=== PATIENT | male | born 1945 | race Caucasian/White ===

== ENCOUNTER 2017-08-02 06:47 | Inpatient (IN) | payer MEDICARE, BC ==
[~2017-08-02] VITALS: Ht 175.3 cm; Wt 136.4 kg
[2017-08-02 08:09] LABS: ALANINE AMINOTRANSFERASE 24 U/L (12-78); ALBUMIN 2.6 g/dL (3.4-5.0); ANION GAP 10 mmol/L (5-15); CHLORIDE 113 mmol/L (98-107); CREATININE 1.01 mg/dL (0.7-1.3)
[2017-08-02 08:11] LABS: ALKALINE PHOSPHATASE 114 U/L (45-117); BILIRUBIN,TOTAL 0.6 mg/dL (0.2-1.0); TOTAL PROTEIN 6.3 g/dL (6.4-8.2)
[2017-08-02 08:37] VITALS: BP 126/70
[2017-08-02] MEDS ORDERED: EPINEPHRINE 1 MG/ML, 1ML ONE (08:48)
[2017-08-02] MEDS ORDERED: BUPIVACAINE/PF 0.5% ONE (08:48)
[2017-08-02] MEDS ORDERED: MIDAZOLAM 1 MG/ML, 2ML ONE (09:05)
[2017-08-02] MEDS ORDERED: SUFentanil 50 MCG/ML, 1ML ONE (09:05)
[2017-08-02] MEDS ORDERED: PROPOFOL 10 MG/ML, 20ML ONE ×2 (09:06→09:11)
[2017-08-02] MEDS ORDERED: LIDOCAINE-MPF 2% ,5ML ONE ×2 (09:07→09:12)
[2017-08-02] MEDS ORDERED: CEFAZOLIN 1,000 MG ONE ×2 (09:07)
[2017-08-02] MEDS ORDERED: NEOSTIGMINE 1 MG/ML, 10ML ONE (09:18)
[2017-08-02] MEDS ORDERED: ROCURONIUM 10 MG/ML,10ML ONE (09:22)
[2017-08-02] MEDS ORDERED: CLINDAMYCIN 150 MG/ML, 6ML ONE (09:43)
[2017-08-02] MEDS ORDERED: DEXAMETHASONE 4 MG/ML, 1ML ONE ×2 (09:49)
[2017-08-02] MEDS ORDERED: hydrALAzine 20 MG/ML, 1ML IV PRN (10:00)
[2017-08-02] MEDS ORDERED: ACETAMINOPHEN 325 MG TABLET PO PRN (10:00)
[2017-08-02] MEDS ORDERED: ONDANSETRON 2MG/ML, 2ML IVPush PRN (10:00)
[2017-08-02] MEDS ORDERED: MEPERIDINE/PF 25MG/0.5ML IVPush PRN (10:00)
[2017-08-02] MEDS ORDERED: HYDROmorphone 1 MG/ML, 1ML IV PRN (10:00)
[2017-08-02] MEDS ORDERED: LORazepam 2 MG/ML, 1ML IVPush PRN (10:00)
[2017-08-02] MEDS ORDERED: OXYcodone 5 MG/5 ML ORAL.SOL UDC PO PRN (10:00)
[2017-08-02] MEDS ORDERED: LABETALOL 5MG/ML, 20ML IV PRN (10:00)
[2017-08-02] MEDS ORDERED: PROMETHAZINE 25 MG/ML, 1ML IV PRN (10:00)
[2017-08-02] MEDS ORDERED: KETAMINE 10 MG/ML, 20ML ONE (10:04)
[2017-08-02] MEDS ORDERED: KETOROLAC 30 MG/1 ML ONE (10:09)
[2017-08-02] MEDS ORDERED: ONDANSETRON 2MG/ML, 2ML ONE ×2 (10:09)
[2017-08-02] MEDS ORDERED: PLEASE ENTER ALLERGIES MC SCH ×3 (10:30→16:00)
[2017-08-02] MEDS ORDERED: cloniDINE/PF 100 MCG/ML, 10 ML ONE (10:48)
[2017-08-02] MEDS ORDERED: ROPIvacaine/PF 0.5%, 30 ML ONE (10:48)
[2017-08-02] MEDS: FENTANYL PF 100 MCG/2ML IV PRN ×2 (10:50→11:30)
[2017-08-02] MEDS ORDERED: FENTANYL PF 100 MCG/2ML ONE (11:00)
[2017-08-02] MEDS ORDERED: OXYcodone 5 MG/5 ML ORAL.SOL UDC ONE (11:01)
[2017-08-02] MEDS ORDERED: CEPH-368 PO (14:03)
[2017-08-02] MEDS ORDERED: OXYC5TAB3 PO (14:06)
[2017-08-02 14:17] VITALS: BP 122/60
== END 2017-08-02 14:30 | disposition home or self-care (01) | DRG 515 ==
LOC: OR 06:47 → UNDOADMIN 06:47 → 4NOR 06:47 → 3NE 06:48 → EDSTATUS 09:00 → OR 14:30 → UNDODISIN 14:30
PROVIDERS: ADMIT Orthopaedic Surgery; ATTEND Orthopaedic Surgery
PROC: 0RWJ0JZ Revision of Synthetic Substitute in Right Shoulder Joint, Open Approach (ICD-10-PCS; principal; 2017-08-02 09:00)
DX: T84.028A Dislocation of other internal joint prosthesis, initial encounter (principal); E43 Unspecified severe protein-calorie malnutrition; E66.01 Morbid (severe) obesity due to excess calories; Z68.41 Body mass index [BMI] 40.0-44.9, adult; T84.83XA Hemorrhage due to internal orthopedic prosthetic devices, implants and grafts, initial encounter; E11.9 Type 2 diabetes mellitus without complications; Y79.2 Prosthetic and other implants, materials and accessory orthopedic devices associated with adverse incidents; I10 Essential (primary) hypertension; Y83.8 Other surgical procedures as the cause of abnormal reaction of the patient, or of later complication, without mention of misadventure at the time of the procedure; Y92.89 Other specified places as the place of occurrence of the external cause
CPT/HCPCS: 36415; 80053; 82962; 93005; J0171; J0690; J1100; J1885; J2250; J2405; J2704; J2710; J2795; J3010; J3490; J0735